=== PATIENT | female | born 1985 ===

== ENCOUNTER 2016-12-27 22:35 | Emergency (ER) | payer MEDICAID ==
[2016-12-27 22:42] VITALS: BMI 33.3
[2016-12-27 22:58] VITALS: BP 139/71; PULSE 78; RESP 24; TEMP 99.6; O2SAT 98
[2016-12-27] MEDS ORDERED: Albuterol-Ipratrop 3 mg / 0.5 (3 ml) UD IH STA (23:00)
--- NOTE | 2016-12-27 23:15 | ED PDOC ---
Arrival/HPI - General Chief Complaint: Shortness Of Breath Time Seen by Provider: 12/27/16 22:46 Historian: Patient - History of Present Illness Narrative History of Present Illness (Text): 12/27/16 23:11 Peyton Herrera is a 31 year old female, with a history of bronchial asthma, presents to the emergency department complaining of wheezing and shortness of breath. States that she used her home nebulizer treatments for minimal relief. Denies fever, chills, cough, chest pain, nausea, vomiting, diarrhea, urinary symptoms, or any other complaints at this time. Time/Duration: 1 hour Symptom Onset: Gradual Symptom Course: Unchanged Severity Level: Mild Activities at Onset: Light Past Medical History - Provider Review Nursing Documentation Reviewed: Yes - Past History Past History: No Previous - Infectious Disease Hx of Infectious Diseases: None - Tetanus Immunization Tetanus Immunization: Unknown - Past Medical History Past Medical History: No Previous - Cardiac Hx Cardiac Disorders: No - Pulmonary Hx Respiratory Disorders: No Hx Asthma: Yes (allegy induced) - Neurological Hx Neurological Disorder: No - HEENT Hx HEENT Disorder: No - Renal Hx Renal Disorder: No - Endocrine/Metabolic Hx Endocrine Disorders: No - Hematological/Oncological Hx Blood Disorders: No - Integumentary Hx Dermatological Disorder: No - Musculoskeletal/Rheumatological Hx Musculoskeletal Disorders: No Hx Falls: No - Gastrointestinal Hx Gastrointestinal Disorders: No Other/Comment: jul 2012 gastric sleeve insertion - Genitourinary/Gynecological Hx Genitourinary Disorders: No - Psychiatric Hx Psychophysiologic Disorder: No Hx Depression: No Hx Emotional Abuse: No Hx Physical Abuse: No Hx Substance Use: Yes - Surgical History Hx Gastric Bypass Surgery: Yes (2011) - Anesthesia Hx Anesthesia: Yes Hx Anesthesia Reactions: No Hx Malignant Hyperthermia: No - Suicidal Assessment Feels Threatened In Home Enviroment: No Family/Social History - Physician Review Nursing Documentation Reviewed: Yes Family/Social History: No Known Family HX Smoking Status: Former Smoker Hx Alcohol Use: Yes Frequency of alcohol use: Socially Amount per day: 0 Hx Substance Use: Yes Substance used: "weed" Hx Substance Use Treatment: No Allergies/Home Meds Allergies/Adverse Reactions: Allergies frui Allergy (Intermediate, Uncoded 08/17/16 22:58) RASH nuts Allergy (Mild, Uncoded 08/17/16 22:58) RASH Home Medications: Home Meds Medication Instructions Recorded Confirmed Albuterol 0.083% [Albuterol 0.083% 1 vial IH Q6H PRN 12/27/16 12/27/16 Inhal Janeth (2.5 mg/3 ml) UD] Review of Systems - Physician Review All systems were reviewed & negative as marked: Yes - Review of Systems Constitutional: Normal. absent: Fatigue, Fevers Respiratory: SOB. absent: Cough, Sputum Cardiovascular: Normal. absent: Chest Pain, Palpitations Gastrointestinal: Normal. absent: Diarrhea, Nausea, Vomiting Neurological: Normal. absent: Headache, Dizziness Psychiatric: Normal Physical Exam Vital Signs Reviewed: Yes Vital Signs Temp Pulse Resp BP Pulse Ox 12/28/16 00:35 24 98 12/27/16 22:57 99.6 F 78 24 139/71 98 Temperature: Afebrile Blood Pressure: Normal Pulse: Regular Respiratory Rate: Normal Appearance: Positive for: Well-Appearing, Non-Toxic, Comfortable Pain Distress: None Mental Status: Positive for: Alert and Oriented X 3 - Systems Exam Head: Present: Atraumatic, Normocephalic Pupils: Present: PERRL Extroacular Muscles: Present: EOMI Conjunctiva: Present: Normal Mouth: Present: Moist Mucous Membranes Respiratory/Chest: Present: Wheezes (bilateral wheezing ). No: Respiratory Distress, Accessory Muscle Use Cardiovascular: Present: Regular Rate and Rhythm, Normal S1, S2. No: Murmurs Abdomen: Present: Normal Bowel Sounds. No: Tenderness, Distention, Peritoneal Signs Upper Extremity: Present: Normal Inspection. No: Cyanosis, Edema Lower Extremity: Present: Normal Inspection. No: Edema Neurological: Present: GCS=15, CN II-XII Intact, Speech Normal, Motor Func Grossly Intact, Normal Sensory Function Skin: Present: Warm, Dry, Normal Color. No: Rashes Psychiatric: Present: Alert, Oriented x 3, Normal Insight, Normal Concentration Medical Decision Making ED Course and Treatment: 12/27/16 23:16 Impression: A 31 year old female who presents to the emergency department complaining of wheezing and shortness of breath. Differential Diagnosis included but are not limited to: asthma exacerbation. Plan: --Chest X-ray -- Duoneb -- Solumedrol -- Reassess and disposition Progress Notes: 12/28/16 00:45 Chest X-ray interpreted by me: No acute processes On re-evaluation, patient feels better and breathing has improved markedly post treatment. I have discussed the results and plan with the patient, who expresses understanding. Patient in agreement with plan to be discharged home. Patient is stable for discharge. Patient was instructed to follow up with physician or return if symptoms worsen or new concerning symptoms arise. - RAD Interpretation Radiology Orders: 12/27/16 23:16 CHEST PORTABLE [RAD] Stat - Medication Orders Current Medication Orders: Discontinued Medications Albuterol/Ipratropium (Duoneb 3 Mg/0.5 Mg (3 Ml) Ud) 3 ml IH ONCE STA Stop: 12/27/16 23:01 Last Admin: 12/27/16 23:11 Dose: 3 ml Azithromycin (Zithromax) 500 mg PO ONCE STA PRN Reason: Protocol Stop: 12/28/16 00:43 Last Admin: 12/28/16 00:53 Dose: 500 mg Methylprednisolone (Solu-Medrol) 125 mg IVP ONCE ONE Stop: 12/27/16 23:01 Last Admin: 12/27/16 23:11 Dose: 125 mg - Maxineibe Statement The provider has reviewed the documentation as recorded by the Abdelrahman Trinidad Provider Attestation: All medical record entries made by the bAdelrahman were at my direction and personally dictated by me. I have reviewed the chart and agree that the record accurately reflects my personal performance of the history, physical exam, medical decision making, and the department course for this patient. I have also personally directed, reviewed, and agree with the discharge instructions and disposition. Disposition/Present on Arrival - Present on Arrival Any Indicators Present on Arrival: No History of DVT/PE: No History of Uncontrolled Diabetes: No Urinary Catheter: No History of Decub. Ulcer: No History Surgical Site Infection Following: None - Disposition Have Diagnosis and Disposition been Completed?: Yes Diagnosis: Bronchitis, Asthma Disposition: HOME/ ROUTINE Disposition Time: 00:43 Patient Plan: Discharge Condition: GOOD Discharge Instructions (ExitCare): Asthma (ED), Acute Bronchitis (ED) Additional Instructions: take meds as prescribed/follow up with your doctor this week Prescriptions: predniSONE [Prednisone] 40 mg PO DAILY #10 tab Albuterol HFA [Ventolin HFA 90 mcg/actuation (8 g)] 2 puff IH [id number] PRN #1 puff PRN Reason: Wheezing Azithromycin [Zithromax] 250 mg PO DAILY #4 tab Referrals: Kristi Be MD [Primary Care Provider] - Follow up with primary
--- NOTE | 2016-12-28 07:50 | RAD ---
HISTORY: cough COMPARISON: Comparison is made to 08/18/2016 FINDINGS: LUNGS: No active pulmonary disease. PLEURA: No significant pleural effusion identified, no pneumothorax apparent. CARDIOVASCULAR: Normal. OSSEOUS STRUCTURES: No significant abnormalities. VISUALIZED UPPER ABDOMEN: Normal. OTHER FINDINGS: None. IMPRESSION: No active disease.
== END 2016-12-28 00:54 | disposition home or self-care (01) ==
LOC: ED 22:35
DX: J45.909 Unspecified asthma, uncomplicated (principal); Z87.891 Personal history of nicotine dependence
CPT/HCPCS: 71010; 96374; 99283; J2930

== ENCOUNTER 2017-10-15 00:29 | Emergency (ER) | payer MEDICAID ==
[2017-10-15 00:51] VITALS: BMI 32.1
[2017-10-15 00:53] VITALS: BP 112/78; PULSE 66; RESP 17; TEMP 97.7; O2SAT 100
--- NOTE | 2017-10-15 01:05 | ED PDOC ---
Arrival/HPI - General Chief Complaint: Abdominal Pain - History of Present Illness Narrative History of Present Illness (Text): 10/15/17 01:08 Pt is a 32 yo F with PMH of asthma presents to ED with 3 weeks of vaginal bleeding. Patient was seen by her OBGYN yesterday who ordered a pelvic ultrasound. However, patient states that she could not get an appointment for US until Tuesday. As the pressure/pain and bleeding continues to be persistent, she came to the ED to be evaluated. Pt states that menses had been regular and consistent before, but now states that she soaks 1 tampon daily. Pt states that she also feels distended and has a lower pelvic pressure and pain. Over this time period patient complains of some dizziness and fatigue. Pt denies dysuria, hematuria, changes in bowel movements, change in appetite, fever, chills, CP, or SOB. PMD: [place] [facility]: [facility] (Ford Gonzalez) Past Medical History - Provider Review Nursing Documentation Reviewed: Yes - Past History Past History: No Previous - Infectious Disease Hx of Infectious Diseases: None - Tetanus Immunization Tetanus Immunization: Unknown - Past Medical History Past Medical History: No Previous - Cardiac Hx Cardiac Disorders: No - Pulmonary Hx Respiratory Disorders: No Hx Asthma: Yes (allegy induced) - Neurological Hx Neurological Disorder: No - HEENT Hx HEENT Disorder: No - Renal Hx Renal Disorder: No - Endocrine/Metabolic Hx Endocrine Disorders: No - Hematological/Oncological Hx Blood Disorders: No - Integumentary Hx Dermatological Disorder: No - Musculoskeletal/Rheumatological Hx Musculoskeletal Disorders: No Hx Falls: No - Gastrointestinal Hx Gastrointestinal Disorders: No Other/Comment: jul 2012 gastric sleeve insertion - Genitourinary/Gynecological Hx Genitourinary Disorders: No - Psychiatric Hx Psychophysiologic Disorder: No Hx Depression: No Hx Emotional Abuse: No Hx Physical Abuse: No Hx Substance Use: Yes - Surgical History Hx Gastric Bypass Surgery: Yes (2011) - Anesthesia Hx Anesthesia: Yes Hx Anesthesia Reactions: No Hx Malignant Hyperthermia: No - Suicidal Assessment Feels Threatened In Home Enviroment: No Family/Social History - Physician Review Nursing Documentation Reviewed: Yes Family/Social History: No Known Family HX Smoking Status: Former Smoker Hx Alcohol Use: Yes Amount per day: 0 Hx Substance Use: Yes Substance used: "weed" Hx Substance Use Treatment: No Allergies/Home Meds Allergies/Adverse Reactions: Allergies frui Allergy (Intermediate, Uncoded 10/15/17 00:51) RASH nuts Allergy (Mild, Uncoded 10/15/17 00:51) RASH Home Medications: Home Meds Medication Instructions Recorded Confirmed Albuterol 0.083% [Albuterol 0.083% 1 vial IH Q6H PRN 12/27/16 10/15/17 Inhal Janeth (2.5 mg/3 ml) UD] Amphetamine Salt Combination 0 mg PO DAILY 10/15/17 10/15/17 [Adderall] Review of Systems - Review of Systems Constitutional: Fatigue Eyes: Normal ENT: Normal Respiratory: Normal Cardiovascular: Normal Gastrointestinal: Abdominal Pain, Nausea. absent: Stool Changes, Constipation, Diarrhea, Vomiting, Appetite Changes, Hematemesis, Food Intolerance Genitourinary Female: Urine Output Changes (difficulty intiating), Vaginal Bleeding. absent: Dysuria, Hematuria, Vaginal Discharge Musculoskeletal: Normal Skin: Normal Neurological: Normal Endocrine: Normal Hemo/Lymphatic: Normal Psychiatric: Normal Physical Exam Vital Signs Reviewed: Yes Temperature: Afebrile Blood Pressure: Normal Pulse: Regular Respiratory Rate: Normal Appearance: Positive for: Well-Appearing Pain Distress: None Mental Status: Positive for: Alert and Oriented X 3 - Systems Exam Head: Present: Atraumatic, Normocephalic Extroacular Muscles: Present: EOMI Mouth: Present: Moist Mucous Membranes Nose (External): Present: Atraumatic Neck: Present: Normal Range of Motion Respiratory/Chest: Present: Clear to Auscultation, Good Air Exchange. No: Respiratory Distress, Accessory Muscle Use Cardiovascular: Present: Regular Rate and Rhythm, Normal S1, S2. No: Murmurs, Rub, Gallop Abdomen: Present: Tenderness (suprapubic), Distention. No: Peritoneal Signs, Rebound, Guarding Back: Present: Normal Inspection Upper Extremity: Present: Normal Inspection Lower Extremity: Present: Normal Inspection Neurological: Present: GCS=15, CN II-XII Intact Skin: Present: Warm, Dry, Normal Color Psychiatric: Present: Alert, Oriented x 3 Vital Signs Temp Pulse Resp BP Pulse Ox 10/15/17 00:53 97.7 F 66 17 112/78 100 Medical Decision Making ED Course and Treatment: Impression: Pt seen and evaluated with medical affairs director. Pt, whose past medical history includes asthma, presented for vaginal bleeding x3 weeks. Pt was seen by her OBGYN yesterday but unable to get appointment for US until next week. Aware and agree with HPI, clinical findings, plan, and management. Plan: -- Transvaginal US -- Labs -- Urinalysis -- Reassess and disposition (Hansel Chacko) 10/15/17 01:19 Assessment: 32 yo F presents with persistent vaginal bleeding and abdominal distension. Plan: - Labs - UA - Urine - Transvaginal US 10/15/17 02:45 Transvaginal Ultrasound Impression: No acute abnormality of the uterus or right ovary seen. Nonvisualization of the left ovary. 10/15/17 02:46 On reassessment, patient still has lower abdominal pelvic fullness. Ultrasound and lab results discussed with patient. As patient is hemodynamically stable patient will be discharged to follow up with her OBGYN. (Ford Gonzalez) - Lab Interpretations Lab Results: 10/15/17 01:43 10/15/17 01:43 Lab Results 10/15/17 01:43: Sodium 142, Potassium 3.9, Chloride 105, Carbon Dioxide 26, Anion Gap 15, BUN 18, Creatinine 0.7, Est GFR ( Amer) > 60, Est GFR (Non- Af Amer) > 60, Random Glucose 83, Calcium 9.5, Total Bilirubin 0.3, AST 27, ALT 24, Alkaline Phosphatase 14 L, Total Protein 7.2, Albumin 3.9, Globulin 3.3, Albumin/Globulin Ratio 1.2 10/15/17 01:43: Urine Color Yellow, Urine Appearance Sl cloudy, Urine pH 6.0, Ur Specific [place] >= 1.030, Urine Protein Negative, Urine Glucose (UA) Negative, Urine Ketones Negative, Urine Blood Small H, Urine Nitrate Negative, Urine Bilirubin Negative, Urine Urobilinogen 0.2, Ur Leukocyte Esterase Negative , Urine RBC 2 - 5, Urine WBC 0 - 2, Ur Epithelial Cells 1 - 3, Calcium Oxalate Crystal Few, Urine Bacteria Few 10/15/17 01:43: WBC 10.5, RBC 3.74, Hgb 10.8 L, Hct 34.4 L, MCV 92.0, MCH 28.9, MCHC 31.4, RDW 13.1, Plt Count 391, MPV 8.6, Gran % 54.0, Lymph % (Auto) 31.8, [place] % (Auto) 5.3, Eos % (Auto) 8.1 H, Baso % (Auto) 0.8, Gran # 5.65, Lymph # ( Auto) 3.3, [place] # (Auto) 0.6, Eos # (Auto) 0.9 H, Baso # (Auto) 0.08 - RAD Interpretation Radiology Orders: 10/15/17 01:03 TRANSVAGINAL [US] Stat Disposition/Present on Arrival - Present on Arrival Any Indicators Present on Arrival: No History of DVT/PE: No History of Uncontrolled Diabetes: No Urinary Catheter: No History of Decub. Ulcer: No History Surgical Site Infection Following: None - Disposition Have Diagnosis and Disposition been Completed?: Yes Disposition Time: 02:50 Patient Plan: Discharge - Disposition Diagnosis: Hypermenorrhea, Dysmenorrhea Disposition: HOME/ ROUTINE Patient Problems: Current Active Problems Problem Status Onset Dysmenorrhea Acute Hypermenorrhea Acute Condition: STABLE Discharge Instructions (ExitCare): Heavy Periods (DC), Menstrual Cramps (DC) Additional Instructions: 1. Follow up with OBGYN as scheduled 2. May use over the counter Motrin for pain as needed; take with food 3. Return to ED if symptoms worsen Forms: [employer] (Welsh)
[2017-10-15 01:57] LABS: URINE BILIRUBIN NEGATIVE (NEGATIVE); URINE BLOOD SMALL (NEGATIVE); URINE GLUCOSE (UA) NEGATIVE (NEGATIVE); URINE LEUKOCYTE ESTERASE NEGATIVE Leu/uL (NEGATIVE); URINE NITRATE NEGATIVE (NEGATIVE); URINE PROTEIN NEGATIVE mg/dL (<30 mg/dL); URINE UROBILINOGEN 0.2 E.U./dL (<1 E.U./dL)
[2017-10-15 01:58] LABS: BASO # 0.08 K/mm3 (0.0-2.0); BASO % 0.8 % (0.0-3.0); EOS # 0.9 (0.0-0.7); EOS % 8.1 % (1.5-5.0); GRAN # 5.65 (1.4-6.5); HEMOGLOBIN 10.8 g/dL (12.0-16.0); LYMPH # 3.3 (1.2-3.4); LYMPH % 31.8 % (22.0-35.0); MEAN CORPUSCULAR HEMOGLOBIN 28.9 pg (25.0-35.0); MEAN CORPUSCULAR HGB CONC 31.4 g/dl (31.0-37.0); MEAN PLATELET VOLUME 8.6 fl (7.0-11.0); MONO # 0.6 (0.1-0.6); MONO % 5.3 % (1.0-6.0); RBC 3.74 10^6/uL (3.5-6.1); RED CELL DISTRIBUTION WIDTH 13.1 % (11.5-14.5); WHITE BLOOD COUNT 10.5 10^3/ul (4.5-11.0)
[2017-10-15 02:04] LABS: URINE APPEARANCE SL CLOUDY (CLEAR); URINE COLOR YELLOW (YELLOW)
[2017-10-15 02:33] LABS: URINE WBC 0 - 2 /hpf (0-6)
[2017-10-15 02:34] LABS: URINE BACTERIA FEW (NEG); URINE CALCIUM OXALATE CRYSTALS FEW /hpf
[2017-10-15 02:36] LABS: BLOOD UREA NITROGEN 18 mg/dL (7-21); CALCIUM 9.5 mg/dL (8.4-10.5); GFR AFRICAN-AMERICAN > 60; GFR NON-AFRICAN AMERICAN > 60
[2017-10-15 02:37] LABS: ALB/GLOB RATIO 1.2 (1.1-1.8); ALBUMIN 3.9 g/dL (3.0-4.8); ALT/SGPT 24 U/L (7-56); AST/SGOT 27 U/L (14-36)
--- NOTE | 2017-10-15 02:42 | US ---
EXAM: US Pelvis Complete, Transabdominal US Pelvis, Transvaginal EXAM DATE/TIME: 10/15/2017 1:03 AM CLINICAL HISTORY: 32 years old, female; Pain; Pelvic pain; Additional info: Abnormal bleed, pelvic pain TECHNIQUE: Real-time transabdominal and transvaginal pelvic ultrasound (complete) with image documentation. Transvaginal imaging was used for better evaluation of the endometrium and adnexa. COMPARISON: No relevant prior studies available. FINDINGS: Uterus: Measures 7.6 x 3.8 x 4.7 cm. Small amount of fluid is seen in the endocervical canal, which may be related to the known vaginal bleeding. This finding is not felt be of acute clinical significance. Endometrial stripe does not appear abnormally thickened, measuring 5.5 mm maximally. No fibroids seen. Right ovary: Within normal limits in appearance, containing multiple follicles. Measures 2.5 x 2.1 x 1.7 cm. Flow seen in the right ovary on color and Doppler imaging, with no evidence of torsion. Left ovary: Could not be visualized. Cul-de-sac: No free fluid. IMPRESSION: No acute abnormality of the uterus or right ovary seen. Nonvisualization of the left ovary. See above for remaining findings.
== END 2017-10-15 02:55 | disposition home or self-care (01) ==
LOC: ED 00:29
DX: N92.0 Excessive and frequent menstruation with regular cycle (principal); N94.6 Dysmenorrhea, unspecified

== ENCOUNTER 2018-08-03 18:26 | Emergency (ER) | payer MEDICAID ==
--- NOTE | 2018-08-03 19:20 | ED PDOC ---
Arrival/HPI - General Chief Complaint: Abnormal Skin Integrity Historian: Patient - History of Present Illness Narrative History of Present Illness (Text): 08/03/18 19:17 33 y/o female, no significant pmh, nkda, c/o lt. hand palm laceration x 1 hour. Pt. stated that she was using the knife to cut the beef package, accidentally sliced herself, was bleeding, no numbness or tingling, no difficulty moving the lt. hand region, no night sweat, no palpitation, no rash, no other medical or psychological complaints. Past Medical History - Provider Review Nursing Documentation Reviewed: Yes - Past History Past History: No Previous - Infectious Disease Hx of Infectious Diseases: None - Tetanus Immunization Tetanus Immunization: Unknown - Past Medical History Past Medical History: No Previous - Cardiac Hx Cardiac Disorders: No - Pulmonary Hx Respiratory Disorders: No Hx Asthma: Yes (allegy induced) - Neurological Hx Neurological Disorder: No - HEENT Hx HEENT Disorder: No - Renal Hx Renal Disorder: No - Endocrine/Metabolic Hx Endocrine Disorders: No - Hematological/Oncological Hx Blood Disorders: No - Integumentary Hx Dermatological Disorder: No - Musculoskeletal/Rheumatological Hx Musculoskeletal Disorders: No Hx Falls: No - Gastrointestinal Hx Gastrointestinal Disorders: No Other/Comment: jul 2012 gastric sleeve insertion - Genitourinary/Gynecological Hx Genitourinary Disorders: No - Psychiatric Hx Psychophysiologic Disorder: No Hx Depression: No Hx Emotional Abuse: No Hx Physical Abuse: No Hx Substance Use: Yes - Surgical History Hx Gastric Bypass Surgery: Yes (2011) - Anesthesia Hx Anesthesia: Yes Hx Anesthesia Reactions: No Hx Malignant Hyperthermia: No - Suicidal Assessment Feels Threatened In Home Enviroment: No Family/Social History - Physician Review Nursing Documentation Reviewed: Yes Family/Social History: Unknown Family HX Smoking Status: Former Smoker Hx Alcohol Use: Yes Amount per day: 0 Hx Substance Use: Yes Substance used: "weed" Hx Substance Use Treatment: No Allergies/Home Meds Allergies/Adverse Reactions: Allergies frui Allergy (Intermediate, Uncoded 10/15/17 00:51) RASH nuts Allergy (Mild, Uncoded 10/15/17 00:51) RASH Home Medications: Home Meds Medication Instructions Recorded Confirmed Albuterol 0.083% [Albuterol 0.083% 1 vial IH Q6H PRN 12/27/16 10/15/17 Inhal Janeth (2.5 mg/3 ml) UD] Amphetamine Salt Combination 0 mg PO DAILY 10/15/17 10/15/17 [Adderall] Review of Systems - Review of Systems Constitutional: absent: Fatigue, Fevers Eyes: absent: Vision Changes ENT: absent: Hearing Changes Respiratory: absent: SOB, Cough Cardiovascular: absent: Chest Pain Gastrointestinal: absent: Abdominal Pain, Diarrhea, Nausea, Vomiting Skin: Laceration. absent: Rash, Pruritis Neurological: absent: Headache, Dizziness Psychiatric: absent: Anxiety, Depression, Suicidal Ideation Physical Exam Vital Signs Reviewed: Yes Vital Signs Temp Pulse Resp BP Pulse Ox 08/03/18 19:09 98.0 F 84 16 153/90 H 99 Temperature: Afebrile Blood Pressure: Hypertensive Pulse: Regular Respiratory Rate: Normal Appearance: Positive for: Well-Appearing, Non-Toxic, Comfortable Pain Distress: Mild Mental Status: Positive for: Alert and Oriented X 3 - Systems Exam Head: Present: Atraumatic, Normocephalic Pupils: Present: PERRL Extroacular Muscles: Present: EOMI Conjunctiva: Present: Normal Mouth: Present: Moist Mucous Membranes Neck: Present: Normal Range of Motion Respiratory/Chest: Present: Clear to Auscultation, Good Air Exchange. No: Respiratory Distress, Accessory Muscle Use Cardiovascular: Present: Regular Rate and Rhythm, Normal S1, S2. No: Murmurs Abdomen: No: Tenderness, Distention, Peritoneal Signs Back: Present: Normal Inspection Upper Extremity: Present: Normal Inspection, Other (Lt. hand palmar visible approx. 2cm superficial laceration with no visible foreign bodies, FROM without limitation, sensation intact, motor 5/5, +radial pulse, capillary refill< 2 seconds, neurovascular intact. ). No: Cyanosis, Edema Lower Extremity: Present: Normal Inspection. No: Edema Neurological: Present: GCS=15, CN II-XII Intact, Speech Normal Skin: Present: Warm, Dry, Normal Color. No: Rashes Psychiatric: Present: Alert, Oriented x 3, Normal Insight, Normal Concentration Medical Decision Making ED Course and Treatment: 08/03/18 19:21 -urine hcg -keflex -will suture. 08/03/18 19:22 PROCEDURE: LACERATION REPAIR Performed by the emergency provider Location: lt. hand palmar Length: 2 cm Description: {"clean wound edges","no foreign bodies"} Distal CMS: Normal. No deficits. Neurovascularly intact. Anesthesia: Lidocaine 1% Preparation: The wound was cleaned with NS 1000cc and clean with [place]. The area was prepped and draped in the usual sterile fashion. Exploration: The wound was explored and no foreign bodies were found. Procedure: The wound was closed with 5-0 nylon. There was {good / appropriate / adequate / loose} approximation. In total, 3 were used. Post-Procedure: Good closure and hemostasis. The patient tolerated the procedure well and there were no complications. CSM remains intact. Post procedure dressing applied. 08/03/18 19:40 -Urine hcg is negative -Discharge home with keflex/motrin, keep the dressing dry and clean for 2 days, clean with peroxide at home twice daily, sutures removed by day 12, follow up with your own pmd and hand specialist within 2 days, return to the ER for any new or worsening signs or symptoms - PA / DEPENDENCY CASE MANAGER / Resident Statement MD/ has reviewed & agrees with the documentation as recorded. Disposition/Present on Arrival - Present on Arrival Any Indicators Present on Arrival: No History of DVT/PE: No History of Uncontrolled Diabetes: No Urinary Catheter: No History of Decub. Ulcer: No History Surgical Site Infection Following: None - Disposition Have Diagnosis and Disposition been Completed?: Yes Diagnosis: Hand laceration Disposition: HOME/ ROUTINE Disposition Time: 19:41 Patient Plan: Discharge Condition: IMPROVED Additional Instructions: -Discharge home with keflex/motrin, keep the dressing dry and clean for 2 days, clean with peroxide at home twice daily, sutures removed by day 12, follow up with your own pmd and hand specialist within 2 days, return to the ER for any new or worsening signs or symptoms Prescriptions: Cephalexin [cephalexin] 500 mg PO TID PRN #30 cap PRN Reason: Other Ibuprofen [Motrin] 600 mg PO QID PRN #30 tab PRN Reason: Other Referrals: Destin Carlton III, MD [Medical Doctor] - Follow up with primary Forms: [employer], [employer] ([place]), WORK NOTE
[2018-08-03 19:22] VITALS: BP 153/90; PULSE 84; RESP 16; TEMP 98; O2SAT 99; BMI 29.1
== END 2018-08-03 19:54 | disposition home or self-care (01) ==
LOC: ED 18:26
DX: S61.412A Laceration without foreign body of left hand, initial encounter (principal); W26.0XXA Contact with knife, initial encounter; Z87.891 Personal history of nicotine dependence